=== PATIENT | male | born 1985 | race Caucasian/White ===

== ENCOUNTER 2018-12-04 11:36 | Emergency (ER) | payer MEDICAID ==
[2018-12-04] MEDS ORDERED: KETOROLAC 60 MG INJ IM (12:59)
[2018-12-04] MEDS ORDERED: HYDROCODONE/APAP (5/325) TAB PO (13:00)
[2018-12-04] MEDS ORDERED: CYCLOBENZAPRINE 10 MG TAB PO (13:00)
[2018-12-04] MEDS ORDERED: METHYLPREDNISOLONE 125 MG INJ IM (13:00)
== END 2018-12-04 13:08 | disposition home or self-care (01) ==
LOC: FTE 11:36
DX: M54.41 Lumbago with sciatica, right side (principal)
CPT/HCPCS: 99282; Z7502